=== PATIENT | male | born 2000 | race Caucasian/White ===

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

== ENCOUNTER 2020-04-08 19:27 | Emergency (ER) | payer OTHER ==
[~2020-04-08] VITALS: Ht 180.3 cm; Wt 71.8 kg
[2020-04-08] MEDS ORDERED: ACETAMINOPHEN WITH CODEINE 300/30MG TABLET PO ONE (21:45)
[2020-04-08] MEDS ORDERED: HYDROCODONE/ACETAMINOPHEN 5/325MG TABLET PO STA (22:35)
[2020-04-08] MEDS ORDERED: BACITRACIN ZINC OINT UDPKT TOP ONE (22:45)
[2020-04-08] MEDS ORDERED: LIDOCAINE HCL/PF 1% 10 MG/ML 5ML VIAL IJ ONE (22:45)
[2020-04-08 23:21] VITALS: BP 141/93
[2020-04-08] MEDS ORDERED: CEFAZOLIN 1000MG PREMIX 50 ML IV ONE (23:30)
== END 2020-04-09 03:24 | disposition home or self-care (01) ==
LOC: ER 19:27
DX: S62.636B Displaced fracture of distal phalanx of right little finger, initial encounter for open fracture (principal); W26.8XXA Contact with other sharp object(s), not elsewhere classified, initial encounter; Y93.89 Activity, other specified; Y92.89 Other specified places as the place of occurrence of the external cause
CPT/HCPCS: 12002; 73140; 96365; 99284; J0690; J3490